=== PATIENT | female | born 1960 | race American Indian/Alaskan Native ===

== ENCOUNTER 2018-06-26 14:21 | Emergency (ER) | payer BC, OTHER ==
[~2018-06-26] VITALS: Ht 157.5 cm; Wt 85.0 kg
[~2018-06-26 14:21] MED LIST: ALBU6.7H INH; ASPI-611 PO; EZET10TA14 PO; IBUP-1985 PO; NICO1PAT36 TP
[2018-06-26 15:05] LABS: BASOPHILS # (AUTO) 0.1 X10'3 (0-0.2); BASOPHILS % (AUTO) 0.5 % (0-1); EOSINOPHILS # (AUTO) 0.3 X10'3 (0-0.9); EOSINOPHILS % (AUTO) 2.8 % (0-6); HEMOGLOBIN 15.3 g/dl (12.0-16.0); LYMPHOCYTES # (AUTO) 4.6 X10'3 (1.1-4.8); LYMPHOCYTES % (AUTO) 40.1 % (21-51); MEAN CORPUSCULAR HEMOGLOBIN 28.9 PG (27.0-31.0); MEAN CORPUSCULAR HGB CONC 33.9 % (33.0-36.5); MEAN CORPUSCULAR VOLUME 85.2 FL (78-98); MEAN PLATELET VOLUME 7.6 FL (7.4-10.4); MONOCYTES # (AUTO) 0.8 X10'3 (0-0.9); MONOCYTES % (AUTO) 6.6 % (2-12); NEUTROPHILS # (AUTO) 5.7 X10'3 (1.8-7.7); PLATELET COUNT 294 X10'3 (140-440); RED BLOOD COUNT 5.28 X10'6 (4.20-5.60); RED CELL DISTRIBUTION WIDTH 13.8 % (11.5-14.5); WHITE BLOOD COUNT 11.4 X10'3 (4.5-11.0)
[2018-06-26 15:11] LABS: CLARITY,URINE CLEAR (Clear); COLOR,URINE YELLOW (Yellow); GLUCOSE, URINE NEGATIVE (Neg); KETONES,URINE 15 mg/dl (Neg); LEUKOCYTE ESTERASE ,URINE NEGATIVE (Neg); NITRITES, URINE NEGATIVE (Neg); OCCULT BLOOD,URINE TRACE-INTACT (Neg); PROTEIN,URINE NEGATIVE (Neg)
[2018-06-26 15:20] LABS: ALANINE AMINOTRANSFERASE 26 U/L (12-78); ALBUMIN 3.3 G/DL (3.4-5.0); ALBUMIN/GLOBULIN RATIO 0.8 (1.1-1.5); ALKALINE PHOSPHATASE 127 IU/L (46-116); ANION GAP 9 (8-16); ASPARTATE AMINO TRANSFERASE 18 U/L (10-37); BILIRUBIN,TOTAL 0.6 MG/DL (0.1-1.0); BLOOD UREA NITROGEN 10 MG/DL (7-18); BUN/CREATININE RATIO 12.8 (6.6-38.0); CALCIUM 8.9 MG/DL (8.5-10.1); CHLORIDE 104 MMOL/L (99-107); CREATININE 0.78 MG/DL (0.40-0.90); GLUCOSE 117 MG/DL (70-104); LIPASE 123 U/L (73-393); POTASSIUM 3.4 MMOL/L (3.5-5.1); SODIUM 138 MMOL/L (135-145); TOTAL CARBON DIOXIDE 24.7 MMOL/L (24-32); TOTAL PROTEIN 7.5 G/DL (6.4-8.2); eGFR 77 ML/MIN
[2018-06-26 15:26] LABS: UA COLLECTION TYPE CLN CATCH MIDSTREAM
[2018-06-26 15:33] LABS: BACTERIA,URINE FEW /HPF (Neg); CAL OXALATE CRYSTALS 1+ /HPF (NEGATIVE); MUCUS STRANDS MODERATE /LPF (Neg); RBC,URINE 0-2 /HPF (0-2); SQUAMOUS EPITHELIAL CELL,UR MODERATE /LPF (FEW); WBC,URINE 0-4 /HPF (0-4)
[2018-06-26] MEDS ORDERED: normal saline 1000ML IV soln IVB ONE (15:35)
[2018-06-26 16:50] VITALS: BP 132/78
== END 2018-06-26 16:52 | disposition home or self-care (01) ==
LOC: ER 14:21
DX: R10.13 Epigastric pain (principal); R11.2 Nausea with vomiting, unspecified; R19.7 Diarrhea, unspecified; E78.00 Pure hypercholesterolemia, unspecified; I10 Essential (primary) hypertension; E11.9 Type 2 diabetes mellitus without complications; Z86.73 Personal history of transient ischemic attack (TIA), and cerebral infarction without residual deficits; Z90.710 Acquired absence of both cervix and uterus; Z79.82 Long term (current) use of aspirin; Z79.899 Other long term (current) drug therapy
CPT/HCPCS: 36415; 80053; 81001; 83690; 85025; 96360; 99284; J7030

== ENCOUNTER 2018-07-17 18:34 | Emergency (ER) | payer BC, OTHER ==
[~2018-07-17] VITALS: Ht 170.2 cm; Wt 76.8 kg
[2018-07-17] MEDS ORDERED: METF500T PO (20:21)
[2018-07-17] MEDS ORDERED: LEVE250T4 PO (20:21)
[2018-07-17] MEDS ORDERED: LIDOcaine 1% (10mg/ml) 2ml vial SQ ONE (21:20)
[2018-07-17] MEDS ORDERED: LIDOcaine 1% 30ml preserv. free vial IJ STA (21:23)
[2018-07-17] MEDS ORDERED: proCHLORperazine 10 MG/2 ml inj IV ONE (21:45)
[2018-07-17] MEDS ORDERED: diphenhydrAMINE 50 mg/ml inj IV ONE (21:45)
[2018-07-17] MEDS ORDERED: ketorolac tromethamine 15mg/ml inj. IV ONE (21:45)
[2018-07-17 23:06] VITALS: BP 135/92
== END 2018-07-17 23:07 | disposition home or self-care (01) ==
LOC: ER 18:34
DX: R51 Headache (principal); E78.00 Pure hypercholesterolemia, unspecified; I10 Essential (primary) hypertension; E11.9 Type 2 diabetes mellitus without complications; Z90.710 Acquired absence of both cervix and uterus; Z86.73 Personal history of transient ischemic attack (TIA), and cerebral infarction without residual deficits; Z79.899 Other long term (current) drug therapy; Z79.82 Long term (current) use of aspirin
CPT/HCPCS: 62270; 70450; 93005; 96374; 96375; 99284; J0780; J1200; J1885; J3490

== ENCOUNTER 2020-01-28 10:35 | Emergency (ER) | payer BC, MEDICAID, OTHER ==
[~2020-01-28] VITALS: Ht 157.5 cm; Wt 81.0 kg
[~2020-01-28 10:35] MED LIST changes: -ALBU6.7H INH; -ASPI-611 PO; -EZET10TA14 PO; -IBUP-1985 PO; +LEVE250T4 PO; +METF500T PO
[2020-01-28 12:52] VITALS: BP 136/85
[2020-01-28] MEDS ORDERED: CEPH500C5 PO (13:58)
== END 2020-01-28 14:16 | disposition home or self-care (01) ==
LOC: ER 10:35
DX: M79.672 Pain in left foot (principal); I73.9 Peripheral vascular disease, unspecified; F03.90 Unspecified dementia, unspecified severity, without behavioral disturbance, psychotic disturbance, mood disturbance, and anxiety; E78.00 Pure hypercholesterolemia, unspecified; I10 Essential (primary) hypertension; E11.9 Type 2 diabetes mellitus without complications; F17.200 Nicotine dependence, unspecified, uncomplicated; Z86.73 Personal history of transient ischemic attack (TIA), and cerebral infarction without residual deficits; Z90.710 Acquired absence of both cervix and uterus; Z79.2 Long term (current) use of antibiotics; Z79.899 Other long term (current) drug therapy
CPT/HCPCS: 93005; 93922; 99284

== ENCOUNTER 2020-03-07 08:05 | Inpatient (IN) | payer MEDICAID ==
[~2020-03-07] VITALS: Ht 157.5 cm; Wt 81.8 kg
[~2020-03-07 08:05] MED LIST changes: +CEPH500C5 PO
--- NOTE | 2020-03-07 08:14 | NUR ---
No s/s of stroke: pt aox4. no facial droop, tongue deviation, arm drift, weakness, numbness/tingling @ this time. No slurred speech.
[2020-03-07] MEDS ORDERED: TETanus/Pertussis (Acell)/Diphther VAC/PF (Tdap-Adult) 0.5ml syringe IMVAC ONE (08:15)
[2020-03-07 08:37] LABS: BASOPHILS # (AUTO) 0.1 X10'3 (0-0.2); BASOPHILS % (AUTO) 0.7 % (0-1); EOSINOPHILS # (AUTO) 0.4 X10'3 (0-0.9); EOSINOPHILS % (AUTO) 3.9 % (0-6); HEMATOCRIT 41.7 % (35.0-45.0); HEMOGLOBIN 13.9 g/dl (12.0-16.0); LYMPHOCYTES # (AUTO) 3.5 X10'3 (1.1-4.8); LYMPHOCYTES % (AUTO) 34.7 % (21-51); MEAN CORPUSCULAR HEMOGLOBIN 28.5 PG (27.0-31.0); MEAN CORPUSCULAR HGB CONC 33.3 g/dL (33.0-36.5); MEAN CORPUSCULAR VOLUME 85.7 FL (78-98); MEAN PLATELET VOLUME 7.9 FL (7.4-10.4); MONOCYTES # (AUTO) 0.7 X10'3 (0-0.9); MONOCYTES % (AUTO) 6.9 % (2-12); NEUTROPHILS # (AUTO) 5.4 X10'3 (1.8-7.7); NEUTROPHILS % (AUTO) 53.8 % (42-75); PLATELET COUNT 125 X10'3 (140-440); RED BLOOD COUNT 4.86 X10'6 (4.20-5.60); RED CELL DISTRIBUTION WIDTH 13.7 % (11.5-14.5); WHITE BLOOD COUNT 10.1 X10'3 (4.5-11.0)
[2020-03-07 08:53] LABS: ALANINE AMINOTRANSFERASE 21 U/L (12-78); ALBUMIN 3.3 G/DL (3.4-5.0); ALBUMIN/GLOBULIN RATIO 0.8 (1.1-1.5); ALKALINE PHOSPHATASE 116 IU/L (46-116); ANION GAP 9 (8-16); ASPARTATE AMINO TRANSFERASE 18 U/L (10-37); BILIRUBIN,TOTAL 0.6 MG/DL (0.1-1.0); BLOOD UREA NITROGEN 12 MG/DL (7-18); BUN/CREATININE RATIO 16.2 (6.6-38.0); CALCIUM 8.7 MG/DL (8.5-10.1); CHLORIDE 107 MMOL/L (99-107); CREATININE 0.74 MG/DL (0.40-0.90); GLUCOSE 124 MG/DL (70-104); POTASSIUM 4.2 MMOL/L (3.5-5.1); SODIUM 140 MMOL/L (135-145); TOTAL CARBON DIOXIDE 24.3 MMOL/L (24-32); TOTAL PROTEIN 7.3 G/DL (6.4-8.2); eGFR 81 ML/MIN
[2020-03-07] MEDS ORDERED: aspirin 325mg tablet PO ONE (09:55)
[2020-03-07] MEDS ORDERED: IBUP-24 PO (10:32)
[2020-03-07] MEDS ORDERED: PRAV10TA39 PO (10:32)
[2020-03-07] MEDS ORDERED: ONDA4TAB6 PO (10:32)
[2020-03-07] MEDS ORDERED: CHOL50004 PO (10:32)
[2020-03-07] MEDS ORDERED: DOCU100C40 PO (10:32)
[2020-03-07] MEDS ORDERED: HYDR-4383 PO (10:32)
[2020-03-07] MEDS ORDERED: CARB200T PO (10:32)
[2020-03-07] MEDS ORDERED: RIVA20TA PO (10:32)
[2020-03-07] MEDS ORDERED: ASPI-1265 PO (10:32)
[2020-03-07] MEDS ORDERED: ZONI100C31 PO (10:32)
[2020-03-07] MEDS ORDERED: magnesium 2GM in 50ml NS 50 ML IV PRN (12:30)
[2020-03-07] MEDS ORDERED: magnesium 4gm in 100ml NS 100 ML IV PRN (12:30)
[2020-03-07] MEDS ORDERED: magnesium Cl slow-release 64mg tablet PO PRN (12:30)
[2020-03-07] MEDS ORDERED: potassium CL 10mEq/100ml bag 100 ML IV PRN ×2 (12:30)
[2020-03-07] MEDS ORDERED: ondansetron/PF 4mg/2ml inj IV PRN (12:30)
[2020-03-07] MEDS ORDERED: potassium Cl 20 mEq SR tablet PO PRN ×2 (12:30)
--- NOTE | 2020-03-07 13:15 | NUR ---
called pharmacy to retime medications as pt has not taken her medications today
--- NOTE | 2020-03-07 13:48 | NUR ---
spoke to jurgen in pharmacy re meds he sent Dr Olivarez text
[2020-03-07] MEDS: nicotine 21mg patch - 24 hr TD SCH (14:55)
[2020-03-07] MEDS ORDERED: HYDROcodone/acetaminophen 5mg/325mg tablet PO PRN (14:55)
[2020-03-07] MEDS: aspirin 81mg tab.chew PO SCH (14:55)
--- NOTE | 2020-03-07 15:00 | NUR ---
called to give report, I was told that RAY Sims was on the phone, I waited on hold for 10 mins
--- NOTE | 2020-03-07 15:12 | NUR ---
called again to give report to RAY Sims, was placedon hold again as nurse was on the phone
--- NOTE | 2020-03-07 15:19 | NUR ---
received report from Charlotte BELL
[2020-03-07] MEDS ORDERED: ondansetron 4mg rapidly disintigrating tab PO PRN (16:00)
[2020-03-07 16:30] VITALS: BP 134/78
--- NOTE | 2020-03-07 17:41 | NUR ---
PAGER ID: [phone] MESSAGE: Bethany [phone] gunnar Paulino- do you want her to have first dose now, Keppra and tegretol? Dose scheduled for 8 pm has not received dose yet today
[2020-03-07] MEDS: acetaminophen 325mg tablet PO PRN (17:50)
[2020-03-07] MEDS: atorvastatin 10mg tablet PO SCH (17:51)
[2020-03-07] MEDS ORDERED: dextrose ORAL solution 15 GM/59 ML bottle PO PRN ×2 (18:15)
[2020-03-07] MEDS ORDERED: dextrose 50%-water 50ml dispensing syringe IV PRN ×2 (18:15)
[2020-03-07] MEDS ORDERED: glucagon, human recombinant 1mg kit SUBCUT PRN (18:15)
[2020-03-07] MEDS ORDERED: insulin Lispro (HumaLOG) vial - multi-dose SQ SCH (18:15)
--- NOTE | 2020-03-07 18:39 | NUR ---
Patient in room ORTHO 4011. I have received report from Bethany BELL and had the opportunity to ask questions and assume patient care.
[2020-03-07 18:51] LABS: HEMOGLOBIN A1C 6.7 % (4.5-6.2)
[2020-03-07] MEDS: docusate sod 100mg capsule PO SCH (20:00)
[2020-03-07] MEDS ORDERED: ZONISAMIDE 100 MG PO SCH (20:00)
[2020-03-07] MEDS: K and/or MAG REPLACEMENT MC SCH (20:00)
[2020-03-07] MEDS: levetiracetam 250mg tablet PO SCH (20:07)
[2020-03-07] MEDS: carBAMazepine 100mg chewable tablet PO SCH (20:09)
[2020-03-07] MEDS ORDERED: rivaroxaban 20mg tablet PO SCH (21:00)
[2020-03-07] MEDS ORDERED: insulin glargine (Lantus) pen - multi-dose SQ SCH (21:00)
[2020-03-07 22:00] VITALS: BP 135/60
[2020-03-08] VITALS (7 sets, daily range): BP systolic 114–160; BP diastolic 69–91
--- NOTE | 2020-03-08 05:01 | NUR ---
Declined to have a new IV placed at this time. Field start still asymptomatic and flushes well.
[2020-03-08 06:16] LABS: BASOPHILS # (AUTO) 0.1 X10'3 (0-0.2); BASOPHILS % (AUTO) 0.6 % (0-1); EOSINOPHILS # (AUTO) 0.4 X10'3 (0-0.9); EOSINOPHILS % (AUTO) 4.4 % (0-6); HEMATOCRIT 40.8 % (35.0-45.0); HEMOGLOBIN 13.4 g/dl (12.0-16.0); LYMPHOCYTES % (AUTO) 33.8 % (21-51); MEAN CORPUSCULAR HEMOGLOBIN 28.4 PG (27.0-31.0); MEAN CORPUSCULAR HGB CONC 32.9 g/dL (33.0-36.5); MEAN CORPUSCULAR VOLUME 86.3 FL (78-98); MEAN PLATELET VOLUME 7.8 FL (7.4-10.4); MONOCYTES # (AUTO) 0.6 X10'3 (0-0.9); MONOCYTES % (AUTO) 7.2 % (2-12); NEUTROPHILS # (AUTO) 4.9 X10'3 (1.8-7.7); PLATELET COUNT 126 X10'3 (140-440); RED BLOOD COUNT 4.72 X10'6 (4.20-5.60); RED CELL DISTRIBUTION WIDTH 13.7 % (11.5-14.5)
--- NOTE | 2020-03-08 06:20 | NUR ---
Patient fell in the bathroom at 0605. notified of the fall and a stat CT ordered.
--- NOTE | 2020-03-08 06:25 | NUR ---
Patient was found down after bathroom call light was pulled. Patient was sitting in the ground next to the toilet. Patient stated "I went to reach for the call light but couldn't reach it with my left hand so I tried to stand up and I fell. My left arm and leg aren't working right." Patient sates she hit her left elbow on the ground and head on the door frame. Patient stated she did not loose consciousness, no bleeding observed anywhere. No bruises or hematomas observed. Night time MD notified and a STAT head CT was ordered.
--- NOTE | 2020-03-08 06:28 | NUR ---
Problems reprioritized. Patient report given, questions answered & plan of care reviewed with Violeta BELL.
[2020-03-08 07:10] LABS: ALBUMIN 3.2 G/DL (3.4-5.0); ANION GAP 9 (8-16); BLOOD UREA NITROGEN 15 MG/DL (7-18); BUN/CREATININE RATIO 19.2 (6.6-38.0); CALCIUM 8.6 MG/DL (8.5-10.1); CHLORIDE 107 MMOL/L (99-107); CREATININE 0.78 MG/DL (0.40-0.90); GLUCOSE 101 MG/DL (70-104); MAGNESIUM 2.2 MG/DL (1.5-2.4); POTASSIUM 4.2 MMOL/L (3.5-5.1); SODIUM 141 MMOL/L (135-145); TOTAL CARBON DIOXIDE 25.5 MMOL/L (24-32); eGFR 76 ML/MIN
[2020-03-08] MEDS: nicotine 21mg patch - 24 hr TD SCH (08:00)
[2020-03-08] MEDS: docusate sod 100mg capsule PO SCH (08:00)
[2020-03-08] MEDS ORDERED: vitamin D (cholecalciferol) 1,000 unit tablet PO SCH (08:00)
[2020-03-08] MEDS: K and/or MAG REPLACEMENT MC SCH (08:00)
[2020-03-08] MEDS: aspirin 81mg tab.chew PO SCH (08:13)
[2020-03-08] MEDS: atorvastatin 10mg tablet PO SCH (08:14)
[2020-03-08] MEDS: acetaminophen 325mg tablet PO PRN (08:14)
[2020-03-08] MEDS: levetiracetam 250mg tablet PO SCH (08:15)
--- NOTE | 2020-03-08 09:51 | NUR ---
PAGER ID: [phone] MESSAGE: RE: [id number] Jose Paulino. Patients left side weakness worse since yesterday. TeleNeuro recommended MRI/MRA brain. Violeta 1689
[2020-03-08] MEDS: carBAMazepine 100mg chewable tablet PO SCH (10:20)
[2020-03-08 10:37] LABS: CHOL/HDL RATIO 6.3 (0.00-4.99); CHOLESTEROL 239 MG/DL (0-200); HDL CHOLESTEROL 38 MG/DL (35-60); LDL CHOLESTEROL 182 MG/DL (50-100); TRIGLYCERIDES 197 MG/DL (20-135)
[2020-03-08] MEDS ORDERED: atorvastatin 20mg tablet PO SCH (11:00)
[2020-03-08] MEDS ORDERED: nicotine 7mg patch - 24hr TD SCH (11:00)
--- NOTE | 2020-03-08 14:08 | NUR ---
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 Stroke nurse having MRI pushed to [facility]. Do you want to contact Neurology at [facility]? Left sided weakness is worsening ONEIDA [id number]
--- NOTE | 2020-03-08 14:15 | NUR ---
MRI/MRA report Discussed with Dr. 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
--- NOTE | 2020-03-08 14:30 | NUR ---
Verbal consent received from patient for neuro telemedicine evaluation.
--- NOTE | 2020-03-08 14:30 | NUR ---
Dr. Olivarez contacted regarding abnormal MRI, Stroke nurse Sunshine contacted and recommend possible transfer to [facility] for Neurologist intervention. Dr. Olivarez wanted another Tele Elmo Consult
--- NOTE | 2020-03-08 15:08 | NUR ---
PAGER ID: [phone] MESSAGE: RE: [id number] Jose Paulino. Tele Elmo done recommend fluids LR@100 to raise BP and to be transferred for possible intervention ELROD [id number]
--- NOTE | 2020-03-08 15:34 | NUR ---
Pages Dr. Olivarez at [phone], no response or call back. Repaged her again and awaiting response. Patient needs neurologist recommendations addressed HUMBERTO
--- NOTE | 2020-03-08 15:34 | NUR ---
PAGER ID: [phone] MESSAGE: RE: [id number] Jose Paulino. Can I start fluids LR@100? Neurologist recommended. Working on transfer to [facility] 4521
--- NOTE | 2020-03-08 16:00 | NUR ---
Still no response from Dr. Olivarez. Lynnette BELL in Case Management also tried calling and texting her with no response. Patient is accepted at [facility] for Neurology intervention. Waiting for Dr. Olivarez to sign transfer orders.
[2020-03-08] MEDS ORDERED: aspirin 325mg tablet PO ONE (16:05)
--- NOTE | 2020-03-08 16:15 | NUR ---
Charge Nurse Kelvin BELL paged Dr. Olivarez regarding the urgent need for her to sign the transfer orders. Still waiting for response.
[2020-03-08] MEDS ORDERED: ringers solution, lacted 1,000 ML IV SCH (16:35)
--- NOTE | 2020-03-08 17:25 | NUR ---
Report called to Moshe in IR at [facility]. Patient is being transferred @ 1800.
--- NOTE | 2020-03-08 18:19 | NUR ---
Problems reprioritized. Patient report given, questions answered & plan of care reviewed with Christal BELL.
--- NOTE | 2020-03-08 18:29 | NUR ---
Patient in room ORTHO 4011. I have received report from Violeta BELL and had the opportunity to ask questions and assume patient care.
--- NOTE | 2020-03-08 18:55 | NUR ---
Patient being transferred to [facility] for higher level of care. Report given to [facility] from day time nurse. Ambulance came up with miguelito. Patient transferred with all belongings. Patient stable at this time.
== END 2020-03-08 19:00 | disposition short-term general hospital (02) | DRG 45 ==
LOC: ER 08:05 → ED HOLD 12:30 → ORTHO 4S 15:45
PROVIDERS: ADMIT Internal Medicine; ATTEND Internal Medicine
DX: I63.9 Cerebral infarction, unspecified (principal); E11.51 Type 2 diabetes mellitus with diabetic peripheral angiopathy without gangrene; F03.90 Unspecified dementia, unspecified severity, without behavioral disturbance, psychotic disturbance, mood disturbance, and anxiety; E11.65 Type 2 diabetes mellitus with hyperglycemia; E78.00 Pure hypercholesterolemia, unspecified; E78.5 Hyperlipidemia, unspecified; G40.209 Localization-related (focal) (partial) symptomatic epilepsy and epileptic syndromes with complex partial seizures, not intractable, without status epilepticus; G83.84 Todd's paralysis (postepileptic); I10 Essential (primary) hypertension; Z90.710 Acquired absence of both cervix and uterus; Z87.891 Personal history of nicotine dependence; Z86.73 Personal history of transient ischemic attack (TIA), and cerebral infarction without residual deficits; Z86.718 Personal history of other venous thrombosis and embolism; Z79.84 Long term (current) use of oral hypoglycemic drugs; S80.212A Abrasion, left knee, initial encounter; W18.39XA Other fall on same level, initial encounter; Y93.89 Activity, other specified; Y92.89 Other specified places as the place of occurrence of the external cause; Y99.8 Other external cause status
CPT/HCPCS: 36415; 70450; 70544; 70547; 70551; 80048; 80053; 80061; 82948; 83036; 83735; 85025; 87081; 90471; 90715; 92508; 93005; 93308; 97110; 97116; 97163; 99285; G0378; J1815; J7120